=== PATIENT | female | born 1945 | race Caucasian/White ===

== ENCOUNTER 2018-11-03 16:56 | Observation (INO) | payer MEDICARE ==
[~2018-11-03] VITALS: Ht 170.2 cm; Wt 76.2 kg
[~2018-11-03 16:56] MED LIST: ALIGN4 MG PO; AMLODIPINE BESYL5 MG PO; ASPIRIN EC81 MG PO; CRESTOR5 MG PO; FENOFIBRATE200 MG PO; GLIPIZIDE10 MG PO; HUMULIN R100 UNIT/2 SQ; HYDROCHLOROTHIA25 MG PO; INSULIN; LOSARTAN POTAS100 MG PO; METFORMIN HCL1000 MG PO; OMEPRAZOLE40 MG PO; VERAPAMIL HCL120 MG PO
[2018-11-03] MEDS ORDERED: NITROGLYCERIN 0.4 MG SUBL SL ONE (17:45)
[2018-11-03] MEDS ORDERED: ACETAMINOPHEN 325 MG TAB PO ONE (17:45)
[2018-11-03] MEDS ORDERED: POTASSIUM CHLORIDE 20 MEQ TAB CR PO STA (18:21)
--- NOTE | 2018-11-03 19:02 | Diagnostic Imaging Report ---
Frontal and lateral views of the chest. HISTORY: Shortness of breath, pain COMPARISON: None available. DISCUSSION: Lungs: The lungs are well inflated. No evidence of a consolidative pneumonia or pulmonary alveolar edema. Pleura: No pleural effusion or pneumothorax. Heart and mediastinum: The cardiomediastinal silhouette appears unremarkable. Bones and soft tissues: Diffusely decreased mineralization of the osseous structures limits bone detail. Mild accentuation of the thoracic kyphosis. Mild multilevel degenerative disc changes. IMPRESSION: 1. No acute radiographic abnormality. 2. Diffuse osseous demineralization. Signed by: Dr. Hadyen Ellis D.O., M.M.M. on 11/03/2018 6:59 PM
[2018-11-03] MEDS ORDERED: ASPIRIN 81 MG CHEW TAB PO ONE (19:30)
--- OUTSIDE RECORDS SUMMARY | 2018-11-03 20:07 | XMS REPORT ---
[facility] Address Unknown Phone Unavailable Care Team Providers Care Java Tech Name Role Phone Marc COWART Unavailable Unavailable Problems This patient has no known problems. Allergies, Adverse Reactions, Alerts This patient has no known allergies or adverse reactions. Medications This patient has no known medications. Results Test Description Test Time Test Comments Text Results Atomic Results Result Comments [facility]R [facility] 2018-11-03 18:58:00 [facility] [address] [address] Patient Name: URSULA OORZCO MR #: [id number] : 1945 Age/Sex: 73/F Req #: [id number] Adm Physician: Ordered by: ROBER COWART MD Report #: [id number] Location: [facility] Room/Bed: Procedure: [id number] HOPD/CXR 2 VIEW - [facility] Exam Date: 11/03/18 Exam Time: 1852 REPORT STATUS: Signed Frontal and lateral views of the chest. HISTORY: Shortness of breath, pain COMPARISON: None available. DISCUSSION: Lungs: The lungs are well inflated. No evidence of a consolidative pneumonia or pulmonary alveolar edema. Pleura: No pleural effusion or pneumothorax. Heart and mediastinum: The cardiomediastinal silhouette appears unremarkable. Bones and soft tissues: Diffusely decreased mineralization of the osseous structures limits bone detail. Mild accentuation of the thoracic kyphosis. Mild multilevel degenerative disc changes. IMPRESSION: 1. No acute radiographic abnormality. 2. Diffuse osseous demineralization. Signed by: Dr. Seth Ellis D.O., M.M.M. on 11/03/2018 6:59 PM Dictated By: SETH ELLIS DO 56 Transcribed By: JEET on 11/03/181858 COPY TO: ROBER COWART MD
--- NOTE | 2018-11-03 20:50 | NUR ---
SPOKE WITH DR Bee LEPE WHO IS COVERING FOR [facility] PT'S CARDIOLOGY CONSULT - MD AWARE OF CONSULT AND STATES WILL SEE PT IN AM
--- NOTE | 2018-11-03 20:51 | NUR ---
called [facility] for transport
[2018-11-03] MEDS: INSULIN REGULAR, HUMAN 100 UNIT/1 ML 3ML VIAL SQ SCH (21:00)
[2018-11-03] MEDS ORDERED: DEXTROSE 50% SYRINGE 50 ML IV PRN (21:00)
[2018-11-03 22:01] VITALS: BP 207/95
--- NOTE | 2018-11-03 22:01 | NUR ---
RECEIVED PT BY EMS STRETCHER TO ROOM 102, PT IS AAOX3, RR EVEN AND NON-LABORED, ON RA. NO S/SX OF DISTRESS NOTED. PT AMBULATORY TO HOSPITAL BED. ORIENTED PT TO HOSPITAL ROOM, CALL LIGHT, PHONE, BED CONTROLS AND LIGHTS. LEFT PT LAYING SEMI FOWLERS IN BED, BED IN LOW LOCKED POSITION, SIDE RAILS UPX2, CALL LIGHT AND PHONE WITHIN REACH.
[2018-11-03 22:40] VITALS: BP 172/92
[2018-11-03 22:49] VITALS: BP 207/95
[2018-11-03] MEDS ORDERED: NOVOLIN 70/30 SC (23:25)
[2018-11-03] MEDS ORDERED: TRESIBA (23:25)
--- NOTE | 2018-11-03 23:26 | NUR ---
SPOKE WITH MD Nelson LEPE CONCERNING PT ELEVATED BP. NEW ORDERS RECEIVED.
[2018-11-03] MEDS ORDERED: HYDRALAZINE HCL 20 MG/ML VIAL IV PRN (23:30)
[2018-11-03] MEDS ORDERED: LABETALOL HCL 20 MG/4 ML SYRINGE IV PRN (23:30)
[2018-11-04] VITALS (9 sets, daily range): BP systolic 137–178; BP diastolic 67–88
--- NOTE | 2018-11-04 00:15 | NUR ---
IV TO (L) AC NOTED TO BE OCCLUDED WHEN FLUSH ATTEMPTED. IV DISCONTINUED. CATHETER TIP INTACT. PRESSURE AND DRESSING APPLIED NEW IV STARTED TO (L) FA 20G. FLUSHES WITHOUT DIFFICULTY, BLOOD RETURN NOTED.
[2018-11-04] MEDS ORDERED: CRANBERRY200 MG PO (00:49)
[2018-11-04] MEDS ORDERED: KRILL OIL 1,001 EACH PO (00:49)
[2018-11-04] MEDS ORDERED: GARLIC1 EAC1 PO (00:49)
[2018-11-04 02:12] LABS: CREATINE KINASE MB 2.5 ng/mL (0-5.0)
[2018-11-04 05:10] LABS: CREATINE KINASE MB 2.5 ng/mL (0-5.0)
[2018-11-04 05:35] LABS: CHOL/HDL RATIO 6.7 (3.0-3.6); CHOLESTEROL 221 MD/DL (0-199); HDL CHOLESTEROL 33 MG/DL (40-60); TRIGLYCERIDES 671 MG/DL (0-149)
--- NOTE | 2018-11-04 07:13 | NUR ---
Rcvd patient in report this am. Patient is asleep in bed at this time. No s/s of distress noted.
[2018-11-04 08:12] LABS: CREATINE KINASE MB 2.7 ng/mL (0-5.0)
[2018-11-04] MEDS: ASPIRIN 81 MG ENTERIC COATED PO SCH (08:41)
[2018-11-04] MEDS: INSULIN REGULAR, HUMAN 100 UNIT/1 ML 3ML VIAL SQ SCH ×4 (08:41→21:27)
--- NOTE | 2018-11-04 12:26 | NUR ---
Patient is AAOx3. patient lung lawson clear to auscultation. Bowel sounds present x4. No edema noted. Patient ambulates on her own. No shortness of breath noted. Patient does c/o sternal chest pain mainly after eating. No radiating chest pain noted.
--- NOTE | 2018-11-04 14:36 | NUR ---
EDUCATED ABOUT RIOS, SIGNED, FILED IN CHART, WITH COPY LEFT WITH FAMILY AT BEDSIDE.
--- NOTE | 2018-11-05 01:25 | NUR ---
MARIA ESTHER [place] BUS DRIVER OF DR DOSS HERE ROUNDING ON PT AT THIS TIME.NOTIFIED MARIA ESTHER THAT DR MUELLER(CARDIOLOGY) CLEARED THE PT TO DISCHARGE FROM CARDIOLOGY STANDPOINT.
--- NOTE | 2018-11-05 01:28 | Consultation ---
DATE OF CONSULTATION: Cardiology consultation. REASON FOR CONSULTATION: Chest pain. HISTORY OF PRESENT ILLNESS: This is a 73-year-old woman with hypertension, diabetes mellitus, and a hiatal hernia status post repair many years ago, presented to the emergency department with chest pain. The patient states that she had central chest pain, moderate intensity, worse with each food intake and mild shortness of breath. The patient has negative cardiac workup with stress test and echocardiogram approximately 1-1/2 years ago in our clinic. REVIEW OF SYSTEMS: A 12-point review of system was conducted, is negative otherwise as stated above in the HPI. PAST MEDICAL HISTORY: As stated above in the HPI. PAST SURGICAL HISTORY: Cardiac catheterization showed nonobstructive coronary artery disease. PAST FAMILY HISTORY: No premature CAD. SOCIAL HISTORY: No illicit drug use or previous tobacco use. ALLERGIES: PENICILLIN AND CODEINE. MEDICATIONS: See medication reconciliation form. PHYSICAL EXAMINATION: VITAL SIGNS: Temperature is 97.7, heart rate 73, respirations 18, blood pressure 137/74, and oxygen saturation 98% on room air. GENERAL: She is well-appearing elderly woman lying comfortably in bed. HEENT: Head normocephalic, atraumatic. Eyes, the extraocular muscles are intact. Throat is clear. NECK: No JVD. No bruits. CARDIOVASCULAR: Regular rate and rhythm. No murmurs. LUNGS: Clear to auscultation. ABDOMEN: Soft, nontender. EXTREMITIES: No edema. VASCULAR: 2+ pulses. SKIN: Warm, dry, intact. LABORATORY DATA: Reviewed. Troponin is negative x3. A 12-lead electrocardiogram showed normal sinus rhythm, left anterior fascicular block, left ventricular hypertrophy. IMPRESSION: 1. Precordial pain. 2. Hiatal hernia. 3. Hyperlipidemia. RECOMMENDATIONS: The patient has ruled out for acute myocardial infarction. She has had normal cardiac workup within the last 1 to 2 years. Her symptoms are consistent with a gastroenterology source. We will defer all other evaluation to primary team. The patient does not require any further cardiac testing at this point in time, and she can follow up with Cardiology as an outpatient. DO DEMOND Cary/MODL /[id number]
[2018-11-05] MEDS ORDERED: HYDRALAZINE HCL 20 MG/ML VIAL IV PRN (01:30)
[2018-11-05 04:00] VITALS: BP 142/80
[2018-11-05 06:02] LABS: BASOPHILS # (AUTO) 0.1 (0.0-0.1); BASOPHILS % 0.7 % (0.0-1.0); EOSINOPHILS # (AUTO) 0.2 (0.0-0.4); EOSINOPHILS % 2.6 % (0.0-6.0); HEMATOCRIT 40.7 % (34.2-44.1); HEMOGLOBIN 13.2 g/dL (12.0-16.0); LYMPHOCYTES % 47.6 % (18.0-39.1); MEAN CORPUSCULAR HEMOGLOBIN 27.8 pg (28-32); MEAN CORPUSCULAR HGB CONC 32.4 g/dL (31-35); MEAN CORPUSCULAR VOLUME 85.9 fL (81-99); MONOCYTES # (AUTO) 0.6 (0.2-0.8); MONOCYTES % 7.5 % (4.4-11.3); NEUTROPHILS # (AUTO) 3.5 (2.1-6.9); NEUTROPHILS % 41.4 % (38.7-80.0); PLATELET COUNT 269 x10e3/uL (140-360); RED BLOOD COUNT 4.74 x10e6/uL (3.6-5.1); RED CELL DISTRIBUTION WIDTH 16.8 % (11.7-14.4)
[2018-11-05 06:31] LABS: ANION GAP 15.2 mmol/L (8-16); CALCIUM 9.9 mg/dL (8.4-10.2); CREATININE, SERUM 1.02 mg/dL (0.57-1.11); MAGNESIUM 1.6 MG/DL (1.3-2.1); PHOSPHORUS 3.2 MG/DL (2.3-4.7); POTASSIUM 4.2 mmol/L (3.5-5.1)
--- NOTE | 2018-11-05 07:38 | NUR ---
Rcvd patient in report this am. Patient is asleep in bed at this time. No s/s of distress noted.
[2018-11-05] MEDS: ASPIRIN 81 MG ENTERIC COATED PO SCH (08:12)
[2018-11-05] MEDS: METOCLOPRAMIDE HCL 10 MG TAB PO SCH ×2 (08:12→11:43)
[2018-11-05 08:30] VITALS: BP 148/77
[2018-11-05] MEDS: INSULIN REGULAR, HUMAN 100 UNIT/1 ML 3ML VIAL SQ SCH ×2 (08:38→11:48)
[2018-11-05] MEDS ORDERED: NON-FORMULARY MEDICATION (Glipizide 10 MG) PO SCH (09:00)
[2018-11-05] MEDS ORDERED: DHA PO SCH ×2 (09:00)
[2018-11-05] MEDS ORDERED: EPA PO SCH ×2 (09:00)
[2018-11-05] MEDS ORDERED: GARLIC PO SCH ×2 (09:00)
[2018-11-05] MEDS ORDERED: KRILL PO SCH ×2 (09:00)
[2018-11-05] MEDS ORDERED: [UNRECOGNIZED DRUG - OTHER] PO SCH ×2 (09:00)
[2018-11-05] MEDS ORDERED: LIP PO SCH ×2 (09:00)
[2018-11-05] MEDS ORDERED: CRANBERRY EXTRACT 200 MG PO SCH ×2 (09:00)
[2018-11-05] MEDS ORDERED: ASTX PO SCH ×2 (09:00)
[2018-11-05] MEDS ORDERED: PANTOPRAZOLE SOD 40 MG TABEC PO SCH (09:00)
[2018-11-05] MEDS ORDERED: GLIPIZIDE 5 MG TAB PO SCH (09:00)
[2018-11-05 10:03] VITALS: BP 148/77
[2018-11-05 12:24] VITALS: BP 147/79
--- NOTE | 2018-11-05 13:45 | Progress Note ---
DATE: 11/05/2018 Cardiology Progress Note SUBJECTIVE: No major events overnight. OBJECTIVE: VITAL SIGNS: Temperature afebrile, pulse 74, respiratory rate 18, blood pressure 148/77, and saturating 97% on room air. GENERAL: Elderly white female, well developed, well nourished, in no acute distress. CARDIOVASCULAR: Regular rate and rhythm. No murmurs, rubs, or gallops. LUNGS: Clear to auscultation bilaterally. ABDOMEN: Soft, mildly tender, nondistended. NEURO and PSYCH: Alert and oriented to person, place, and time. Normal affect. INPATIENT MEDICATIONS: Reviewed. LABORATORY DATA: Reviewed. IMAGING DATA: Reviewed. ASSESSMENT: 1. Precordial pain. 2. Hiatal hernia. 3. Hyperlipidemia. RECOMMENDATIONS: The patient has been ruled out for acute IN with serial troponins. Had a normal cardiac workup within the last year. Symptoms consistent with GI origin. Given her prior hiatal hernia, defer evaluation to GI. The patient is okay to be discharged from a cardiology standpoint, will follow up with her outpatient supervisor curing room, Dr. Arambula, in two weeks post discharge. Thank you for this consult. We will continue to follow. MD RYLEY Palacios/ONEIDA /[id number]
[2018-11-05] MEDS ORDERED: SIMVASTATIN20 MG PO (13:57)
[2018-11-05] MEDS ORDERED: METOCLOPRAMIDE10 MG PO (13:57)
[2018-11-05] MEDS ORDERED: PANTOPRAZOLE SO40 MG PO (13:57)
--- NOTE | 2018-11-05 14:27 | NUR ---
Patient discharged from facility to home. Patient assisted out via staff. Reviewed discharge paperwork with patient and family member. RX's given, and follow up appts reviewed. Patient refused to take the cholesterol medication because she has tried statin medication and is unable to take. She informed the chef yesterday
[2018-11-05] MEDS ORDERED: TRESIBA SC SCH (21:00)
[2018-11-05] MEDS ORDERED: ASPIRIN 81 MG ENTERIC COATED PO SCH (21:00)
[2018-11-05] MEDS ORDERED: SIMVASTATIN 20 MG TAB PO SCH (21:00)
[2018-11-05] MEDS ORDERED: AMLODIPINE BESYLATE 5 MG TAB PO SCH (21:00)
--- NOTE | 2018-11-06 14:19 | Discharge Summary ---
PERTINENT HISTORY AND PHYSICAL FINDINGS: The patient complained of chest tightness in the central wall chest area with associated sudden onset of shortness of breath and mild lightheadedness [place] the [place] November 03, 2018. At maximum, the chest pain was described as moderate and was later described as mild in the emergency department. She complains of pain with eating and in the past 2 days, she states the chest pain radiated to her back. Cardiology has been consulted and is seeing the patient. PAST MEDICAL HISTORY: Significant for type 2 diabetes mellitus, hypertension, and acute gastritis. The patient had a cardiac catheterization in 2012 with 20% blockage. ALLERGIES: SHE DENIES BEING ALLERGIC TO CODEINE AND ADMITS TO BEING ALLERGIC TO PENICILLIN. ADMITTING DIAGNOSES: Include: 1. Acute onset chest pain. 2. Acute dyspnea. 3. Hypertension. 4. Type 2 diabetes mellitus. 5. Hypokalemia. 6. Acute gastritis with history of gastroesophageal reflux disease, probable diabetic gastroparesis. 7. Hyperlipidemia. DISCHARGE DIAGNOSES: Include: 1. Acute onset chest pain. 2. Acute dyspnea. 3. Hypertension. 4. Type 2 diabetes mellitus. 5. Hypokalemia. 6. Acute gastritis with history of gastroesophageal reflux disease, probable diabetic gastroparesis. 7. Hyperlipidemia. CONSULTING PHYSICIAN: Includes Dr. Balderas with Cardiology. Per his documentation dated today, the patient has ruled out for acute myocardial infarction. She has a normal cardiac workup within the last 1-2 years. Symptoms are consistent with a gastroenterology source. The patient does not require any further cardiac testing at this point. PERTINENT DIAGNOSTICS AND LABS: On admission, potassium was 2.8, BUN 13, and creatinine 1.0. Hemoglobin 13.6 and hematocrit 40.8. EKG per the emergency department physician showed abnormal ST waves, abnormal QT, nonspecific ST segment, T-wave abnormalities, incomplete right bundle-branch block. B-type natriuretic peptide 15.6. Troponin I less than 0.05. D-dimer 334. Triglycerides 671, cholesterol 221, and HDL 33. Chest x-ray was negative. Fingerstick blood glucose in the 200s. Today, fingerstick blood glucose level 257 and 283, GFR 53, creatinine of 1.02, and potassium level 4.2. Vital signs are stable. Review of systems, the patient states that her chest discomfort is gone and that the Reglan that she has been taking has helped the discomfort considerably. We will discharge her home on Reglan and Protonix for diabetic gastroparesis. Physical exam is unchanged. The patient will be discharging home without home health. No DME required. She is to continue on ADA, low-sodium diet, activity level as tolerated. Follow up with Dr. Ian Perez, her PCP in 1-2 weeks. She is also to follow up with her Gastroenterology physician, Dr. Jack Sandoval. Her last colonoscopy was about a year ago. Prescriptions will be provided for simvastatin 20 mg p.o. q.h.s., Protonix 40 mg p.o. b.i.d., and Reglan 5 mg p.o. before meals and at bedtime. Dictated by Mynor Montenegro NP Nelson Lee MD [facility]/OENIDA /[id number]
== END 2018-11-05 14:23 | disposition home or self-care (01) ==
LOC: FSED 16:56 → ERHOLD 19:39 → MED/SURG 22:01
PROVIDERS: ADMIT Internal Medicine; ATTEND Internal Medicine
DX: R07.2 Precordial pain (principal); I10 Essential (primary) hypertension; E11.9 Type 2 diabetes mellitus without complications; Z87.891 Personal history of nicotine dependence; Z88.5 Allergy status to narcotic agent; Z88.0 Allergy status to penicillin; Z91.018 Allergy to other foods; Z91.048 Other nonmedicinal substance allergy status; K21.9 Gastro-esophageal reflux disease without esophagitis; E87.6 Hypokalemia; K29.00 Acute gastritis without bleeding; E78.5 Hyperlipidemia, unspecified; K44.9 Diaphragmatic hernia without obstruction or gangrene
CPT/HCPCS: 36415 ×2; 71046; 80048; 80053; 80061; 82550; 82553; 82948 ×3; 83036; 83735; 84100; 84484 ×2; 85025 ×2; 93005; 99284; G0378 ×3; J0360; J1817; J8597; S0164

== ENCOUNTER 2021-09-20 18:21 | Inpatient (IN) | payer MEDICARE, OTHER ==
[~2021-09-20] VITALS: Ht 170.2 cm; Wt 76.2 kg
[~2021-09-20 18:21] MED LIST changes: +CRANBERRY200 MG PO; +GARLIC1 EAC1 PO; +KRILL OIL 1,001 EACH PO; +METOCLOPRAMIDE10 MG PO; +NOVOLIN 70/30 SC; +PANTOPRAZOLE SO40 MG PO; +SIMVASTATIN20 MG PO; +TRESIBA
[2021-09-20] MEDS ORDERED: ONDANSETRON HCL INJ 2MG/ML 2ML 2 MG/ML VIAL IV STA (18:43)
[2021-09-20] MEDS ORDERED: KETOROLAC TROMETHAMINE 30 MG/ML VIAL IV STA (18:43)
[2021-09-20] MEDS ORDERED: SODIUM CHLORIDE 0.9% 1000ML 1,000 ML IV STA ×2 (18:43→20:14)
[2021-09-20] MEDS ORDERED: ACETAMINOPHEN 325 MG TAB PO STA (19:15)
[2021-09-20 19:18] LABS: BASOPHILS % 0.2 % (0.0-1.0); EOSINOPHILS % 0.1 % (0.0-6.0); HEMATOCRIT 41.6 % (34.2-44.1); HEMOGLOBIN 13.3 g/dL (12.0-16.0); LYMPHOCYTES % 12.6 % (18.0-39.1); MEAN CORPUSCULAR HEMOGLOBIN 28.7 pg (28-32); MEAN CORPUSCULAR VOLUME 89.7 fL (81-99); MONOCYTES # (AUTO) 0.5 (0.2-0.8); MONOCYTES % 6.1 % (4.4-11.3); NEUTROPHILS # (AUTO) 6.6 (2.1-6.9); NEUTROPHILS % 80.3 % (38.7-80.0); PLATELET COUNT 305 x10e3/uL (140-360); RED BLOOD COUNT 4.64 x10e6/uL (3.6-5.1); RED CELL DISTRIBUTION WIDTH 13.3 % (11.7-14.4)
[2021-09-20 19:36] LABS: ALBUMIN 3.5 g/dL (3.5-5.0); ALBUMIN/GLOBULIN RATIO 0.7 (0.8-2.0); ANION GAP 19.8 mmol/L (8-16); CALCIUM 11.3 mg/dL (8.4-10.2); CREATININE, SERUM 1.94 mg/dL (0.57-1.11); POTASSIUM 3.8 mmol/L (3.5-5.1)
[2021-09-20] MEDS ORDERED: METRONIDAZOLE 500 MG TAB PO ONE (19:45)
[2021-09-20] MEDS ORDERED: CEFTRIAXONE 1 GM in SODIUM CHLORIDE 0.9% 50ML 50 ML IV ONE (19:45)
[2021-09-20] MEDS ORDERED: CEFTRIAXONE 1 GM VIAL ONE (19:55)
[2021-09-20 19:58] LABS: INR 1.17; PROTHROMBIN TIME 15.7 seconds (11.9-14.5)
[2021-09-20 19:59] LABS: PARTIAL THROMBOPLASTIN TIME 44.8 seconds (23.8-35.5)
[2021-09-20] MEDS ORDERED: INSULIN REGULAR, HUMAN 100 UNIT/1 ML IV ONE (20:00)
[2021-09-20 20:13] LABS: B-TYPE NATRIURETIC PEPTIDE2 63.7 pg/mL (0-100)
[2021-09-20 20:26] LABS: ABG HCO3 22 mmol/L (22-26); ABG PCO2 29 mmHg (35-45); ABG PH 7.49 (7.35-7.45); ABG PO2 96 mmHg (80-105); ABG TCO2 23
[2021-09-20] MEDS ORDERED: SODIUM CHLORIDE 0.9% 1000ML 1,000 ML ONE (20:27)
[2021-09-20 21:00] LABS: CLARITY,URINE CLOUDY (CLEAR); COLOR,URINE YELLOW (YELLOW)
[2021-09-20 21:01] LABS: KETONES,URINE 2+ (NEGATIVE); LEUKOCYTE ESTERASE ,URINE NEGATIVE (NEGATIVE); NITRITE,URINE NEGATIVE (NEGATIVE); PROTEIN,URINE DIPSTICK >=300 (NEGATIVE); URINE UROBILINOGEN 4 mg/dL (0.2 - 1)
[2021-09-20 21:07] LABS: WBC,URINE (MAN) >50 /HPF (0-5)
[2021-09-20 21:08] LABS: BACTERIA,URINE MANY /HPF; EPITHELIAL CELLS,URINE FEW /LPF; RBC,URINE 21-50 /HPF (0-5)
[2021-09-20] MEDS ORDERED: SODIUM CHLORIDE 0.9% 1000ML 1,000 ML IV ONE (22:15)
[2021-09-20] MEDS ORDERED: Morphine 2mg Syringe 2 MG/ML SYR IV PRN (22:30)
[2021-09-20] MEDS ORDERED: DEXTROSE 50% SYRINGE 50 ML IV PRN (23:15)
[2021-09-20] MEDS ORDERED: ACETAMINOPHEN 325 MG TAB PO PRN (23:15)
[2021-09-20 23:35] VITALS: BP 116/45
[2021-09-20] MEDS: SODIUM CHLORIDE 0.9% 1000ML 1,000 ML IV SCH (23:52)
[2021-09-21] VITALS (9 sets, daily range): BP systolic 113–163; BP diastolic 45–76
[2021-09-21] MEDS: ONDANSETRON HCL INJ 2MG/ML 2ML 2 MG/ML VIAL IV PRN ×2 (06:14→11:10)
[2021-09-21 06:29] LABS: BASOPHILS % 0.3 % (0.0-1.0); EOSINOPHILS # (AUTO) 0.1 (0.0-0.4); EOSINOPHILS % 2.1 % (0.0-6.0); LYMPHOCYTES # (AUTO) 1.7 (1.0-3.2); LYMPHOCYTES % 24.8 % (18.0-39.1); MEAN CORPUSCULAR HEMOGLOBIN 29.3 pg (28-32); MEAN CORPUSCULAR HGB CONC 30.6 g/dL (31-35); MEAN CORPUSCULAR VOLUME 95.7 fL (81-99); MONOCYTES # (AUTO) 0.6 (0.2-0.8); MONOCYTES % 8.4 % (4.4-11.3); NEUTROPHILS # (AUTO) 4.4 (2.1-6.9); PLATELET COUNT 240 x10e3/uL (140-360); RED BLOOD COUNT 3.76 x10e6/uL (3.6-5.1); RED CELL DISTRIBUTION WIDTH 13.5 % (11.7-14.4)
[2021-09-21] MEDS: SODIUM CHLORIDE 0.9% 1000ML 1,000 ML IV SCH ×3 (06:29→22:19)
[2021-09-21 06:59] LABS: ANION GAP 14.3 mmol/L (8-16); CALCIUM 9.5 mg/dL (8.4-10.2); CREATININE, SERUM 1.84 mg/dL (0.57-1.11); POTASSIUM 3.3 mmol/L (3.5-5.1)
[2021-09-21] MEDS: INSULIN REGULAR, HUMAN 100 UNIT/1 ML SQ SCH ×4 (07:30→21:00)
[2021-09-21] MEDS: INSULIN GLARGINE 100 UNITS/ML VIAL SQ SCH (09:00)
[2021-09-21 09:02] LABS: CHOL/HDL RATIO 10.6 (3.0-3.6); CHOLESTEROL 181 MD/DL (0-199); HDL CHOLESTEROL 17 MG/DL (40-60); TRIGLYCERIDES 428 MG/DL (0-149)
[2021-09-21] MEDS ORDERED: PROMETHAZINE 12.5MG/ NACL 0.9% 12.5 MG/50 ML BAG IV PRN (14:30)
[2021-09-21] MEDS ORDERED: HYDROCORTISONE ACETATE 25 MG/SUPP.RECT SUPP RC PRN (14:30)
[2021-09-21] MEDS: AMLODIPINE BESYLATE 5 MG TAB PO SCH (22:12)
[2021-09-22] VITALS (8 sets, daily range): BP systolic 133–151; BP diastolic 52–72
[2021-09-22 06:03] LABS: BASOPHILS % 0.5 % (0.0-1.0); EOSINOPHILS # (AUTO) 0.3 (0.0-0.4); EOSINOPHILS % 4.2 % (0.0-6.0); HEMATOCRIT 34.9 % (34.2-44.1); HEMOGLOBIN 10.7 g/dL (12.0-16.0); LYMPHOCYTES # (AUTO) 2.1 (1.0-3.2); LYMPHOCYTES % 32.6 % (18.0-39.1); MEAN CORPUSCULAR HEMOGLOBIN 29.1 pg (28-32); MEAN CORPUSCULAR HGB CONC 30.7 g/dL (31-35); MEAN CORPUSCULAR VOLUME 94.8 fL (81-99); MONOCYTES # (AUTO) 0.6 (0.2-0.8); NEUTROPHILS # (AUTO) 3.5 (2.1-6.9); NEUTROPHILS % 53.1 % (38.7-80.0); RED BLOOD COUNT 3.68 x10e6/uL (3.6-5.1); RED CELL DISTRIBUTION WIDTH 13.8 % (11.7-14.4)
[2021-09-22] MEDS: SODIUM CHLORIDE 0.9% 1000ML 1,000 ML IV SCH ×3 (06:30→22:15)
[2021-09-22 06:49] LABS: ANION GAP 13.5 mmol/L (8-16); CALCIUM 8.7 mg/dL (8.4-10.2); CREATININE, SERUM 1.13 mg/dL (0.57-1.11); POTASSIUM 3.5 mmol/L (3.5-5.1)
[2021-09-22] MEDS: INSULIN REGULAR, HUMAN 100 UNIT/1 ML SQ SCH ×4 (07:30→21:28)
[2021-09-22 07:53] LABS: PLATELET COUNT 209 x10e3/uL (140-360)
[2021-09-22] MEDS ORDERED: SODIUM CHLORIDE 0.9% 100 ML ONE (08:11)
[2021-09-22] MEDS: METRONIDAZOLE 500 MG TAB PO SCH ×2 (08:24→21:00)
[2021-09-22] MEDS: INSULIN GLARGINE 100 UNITS/ML VIAL SQ SCH (09:00)
[2021-09-22] MEDS ORDERED: PANTOPRAZOLE SOD 40 MG TABEC PO ONE (12:00)
[2021-09-22] MEDS: AMLODIPINE BESYLATE 5 MG TAB PO SCH (21:27)
[2021-09-23 00:03] VITALS: BP 111/95
[2021-09-23] MEDS: ONDANSETRON HCL INJ 2MG/ML 2ML 2 MG/ML VIAL IV PRN ×2 (01:00→06:32)
[2021-09-23 04:10] VITALS: BP 131/61
[2021-09-23] MEDS: SODIUM CHLORIDE 0.9% 1000ML 1,000 ML IV SCH (06:30)
[2021-09-23 07:17] LABS: BASOPHILS % 0.3 % (0.0-1.0); EOSINOPHILS # (AUTO) 0.2 (0.0-0.4); EOSINOPHILS % 3.1 % (0.0-6.0); HEMATOCRIT 31.1 % (34.2-44.1); HEMOGLOBIN 9.8 g/dL (12.0-16.0); LYMPHOCYTES # (AUTO) 2.5 (1.0-3.2); LYMPHOCYTES % 35.7 % (18.0-39.1); MEAN CORPUSCULAR HEMOGLOBIN 28.4 pg (28-32); MEAN CORPUSCULAR HGB CONC 31.5 g/dL (31-35); MEAN CORPUSCULAR VOLUME 90.1 fL (81-99); MONOCYTES # (AUTO) 0.6 (0.2-0.8); MONOCYTES % 8.6 % (4.4-11.3); NEUTROPHILS # (AUTO) 3.6 (2.1-6.9); NEUTROPHILS % 51.9 % (38.7-80.0); PLATELET COUNT 204 x10e3/uL (140-360); RED BLOOD COUNT 3.45 x10e6/uL (3.6-5.1); RED CELL DISTRIBUTION WIDTH 13.4 % (11.7-14.4)
[2021-09-23] MEDS ORDERED: PANTOPRAZOLE SOD 40 MG TABEC PO SCH (07:30)
[2021-09-23 07:34] LABS: ANION GAP 13.5 mmol/L (8-16); CALCIUM 8.8 mg/dL (8.4-10.2); CREATININE, SERUM 0.92 mg/dL (0.57-1.11); POTASSIUM 3.5 mmol/L (3.5-5.1)
[2021-09-23 07:50] VITALS: BP_SYST 135; BP_SYST 155; BP_DIAS 69
[2021-09-23] MEDS: METRONIDAZOLE 500 MG TAB PO SCH (08:06)
[2021-09-23] MEDS: INSULIN GLARGINE 100 UNITS/ML VIAL SQ SCH (08:09)
[2021-09-23] MEDS: INSULIN REGULAR, HUMAN 100 UNIT/1 ML SQ SCH ×2 (08:10→11:30)
[2021-09-23 11:32] VITALS: BP 137/70
[2021-09-23] MEDS ORDERED: ONDANSETRON ODT4 MG PO (13:36)
[2021-09-23] MEDS ORDERED: METRONIDAZOLE500 MG PO (13:36)
[2021-09-23] MEDS ORDERED: PANTOPRAZOLE SO40 MG PO (13:36)
== END 2021-09-23 14:28 | disposition home or self-care (01) | DRG 690 ==
LOC: ER 18:31 → ERHOLD 23:13 → MED/SURG3 23:33
PROVIDERS: ADMIT Internal Medicine; ATTEND Internal Medicine
DX: N39.0 Urinary tract infection, site not specified (principal); N17.9 Acute kidney failure, unspecified; E87.2 Acidosis; A09 Infectious gastroenteritis and colitis, unspecified; E11.9 Type 2 diabetes mellitus without complications; I10 Essential (primary) hypertension; E83.52 Hypercalcemia; Z87.440 Personal history of urinary (tract) infections; Z88.0 Allergy status to penicillin; Z91.018 Allergy to other foods; Z91.048 Other nonmedicinal substance allergy status; Z20.822 Contact with and (suspected) exposure to COVID-19; Z79.4 Long term (current) use of insulin
CPT/HCPCS: 36415; 36600; 71045; 74176; 80048; 80053; 80061; 81001; 82550; 82553; 82805; 82948; 83036; 83605; 83690; 83880; 84484; 85025; 85610; 85730; 87040; 87086; 93005; 96361; 99251; 99284; J0696; J1815; J1885; J2405; J2550; J7030; J7050; U0002

== ENCOUNTER 2022-02-10 07:07 | Observation (INO) | payer MEDICARE ==
[2022-02-05 15:06] LABS: BASOPHILS # (AUTO) 0.1 (0.0-0.1); BASOPHILS % 0.9 % (0.0-1.0); EOSINOPHILS # (AUTO) 0.3 (0.0-0.4); EOSINOPHILS % 3.8 % (0.0-6.0); HEMATOCRIT 42.5 % (34.2-44.1); HEMOGLOBIN 14.7 g/dL (12.0-16.0); LYMPHOCYTES # (AUTO) 3.4 (1.0-3.2); LYMPHOCYTES % 45.2 % (18.0-39.1); MEAN CORPUSCULAR HEMOGLOBIN 31.1 pg (28-32); MEAN CORPUSCULAR HGB CONC 34.6 g/dL (31-35); MEAN CORPUSCULAR VOLUME 89.9 fL (81-99); MONOCYTES # (AUTO) 0.5 (0.2-0.8); MONOCYTES % 6.6 % (4.4-11.3); NEUTROPHILS # (AUTO) 3.2 (2.1-6.9); NEUTROPHILS % 43.2 % (38.7-80.0); PLATELET COUNT 302 x10e3/uL (140-360); RED BLOOD COUNT 4.73 x10e6/uL (3.6-5.1); RED CELL DISTRIBUTION WIDTH 14.1 % (11.7-14.4)
[2022-02-05 15:26] LABS: ALBUMIN 3.8 g/dL (3.5-5.0); ALBUMIN/GLOBULIN RATIO 0.7 (0.8-2.0); ANION GAP 20.4 mmol/L (8-16); CALCIUM 9.7 mg/dL (8.4-10.2); CREATININE, SERUM 1.82 mg/dL (0.57-1.11)
[2022-02-05 15:28] LABS: POTASSIUM 5.4 mmol/L (3.5-5.1)
[~2022-02-10] VITALS: Ht 170.2 cm; Wt 67.6 kg
[2022-02-10] VITALS (31 sets, daily range): BP systolic 107–186; BP diastolic 49–108
[~2022-02-10 07:07] MED LIST changes: +METRONIDAZOLE500 MG PO; +ONDANSETRON ODT4 MG PO
[2022-02-10] MEDS ORDERED: TRICOR145 MG PO (11:12)
[2022-02-10] MEDS ORDERED: OMEPRAZOLE40 MG PO (11:12)
[2022-02-10] MEDS ORDERED: PROPRANOLOL HCL40 MG PO (11:12)
[2022-02-10] MEDS ORDERED: ASPIRIN81 MG PO (11:12)
[2022-02-10] MEDS ORDERED: SODIUM CHLORIDE 0.9% 1000ML 1,000 ML ONE ×3 (12:02→18:44)
[2022-02-10] MEDS ORDERED: IOPAMIDOL 300MG/ML 50ML INFUS..BTL IV ONE (13:51)
[2022-02-10] MEDS ORDERED: IOPAMIDOL 300MG/ML 100 ML INFUS..BTL IV ONE (13:51)
[2022-02-10] MEDS ORDERED: HEPARIN SOD/SOD CHLORIDE 2,000 ML ONE (13:51)
[2022-02-10] MEDS ORDERED: LIDOCAINE HCL 1% LOCAL INJ 20 ML VIAL ONE (13:52)
[2022-02-10] MEDS ORDERED: MIDAZOLAM HCL 2 MG/2 ML VIAL ONE ×3 (13:53→15:19)
[2022-02-10] MEDS ORDERED: HEPARIN SOD (PORCINE) 1000 UNIT/ML 30ML ONE (13:53)
[2022-02-10] MEDS ORDERED: NITROGLYCERIN/D5W 200 MCG/ML 250 ML ONE (13:54)
[2022-02-10] MEDS ORDERED: FENTANYL CITRATE/PF 100MCG/2 ML INJ ONE ×2 (13:54→15:20)
[2022-02-10] MEDS ORDERED: VERAPAMIL HCL 2.5 MG/ML 2 ML VIAL ONE (14:55)
[2022-02-10] MEDS ORDERED: Morphine 4mg INJECTION 4 MG/ML INJ IV PRN (15:45)
[2022-02-10] MEDS ORDERED: DEXTROSE 50% SYRINGE 50 ML IV PRN (15:45)
[2022-02-10] MEDS ORDERED: HYDROCODONE/APAP 5MG-325MG TAB PO PRN (15:45)
[2022-02-10] MEDS ORDERED: ONDANSETRON HCL INJ 2MG/ML 2ML 2 MG/ML VIAL IV PRN (15:45)
[2022-02-10] MEDS ORDERED: ACETAMINOPHEN 325 MG TAB PO PRN (15:45)
[2022-02-10] MEDS ORDERED: Morphine 2mg Syringe 2 MG/ML SYR IV PRN (15:45)
[2022-02-10] MEDS: INSULIN LISPRO 100 UNIT/1 ML 3ML VIAL SQ SCH ×2 (16:30→22:30)
[2022-02-10] MEDS: SODIUM CHLORIDE 0.9% 1000ML 1,000 ML IV SCH (18:30)
[2022-02-10] MEDS ORDERED: ZOLPIDEM TARTRATE 5 MG TAB PO PRN (21:00)
[2022-02-10] MEDS ORDERED: AMLODIPINE BESYLATE 5 MG TAB PO SCH (21:00)
[2022-02-11] VITALS: BP 138/68
[2022-02-11] MEDS: SODIUM CHLORIDE 0.9% 1000ML 1,000 ML IV SCH (03:00)
[2022-02-11 04:00] VITALS: BP 156/73
[2022-02-11 06:11] LABS: BASOPHILS # (AUTO) 0.1 (0.0-0.1); BASOPHILS % 0.6 % (0.0-1.0); EOSINOPHILS # (AUTO) 0.2 (0.0-0.4); EOSINOPHILS % 2.4 % (0.0-6.0); HEMOGLOBIN 12.1 g/dL (12.0-16.0); LYMPHOCYTES # (AUTO) 2.3 (1.0-3.2); LYMPHOCYTES % 29.8 % (18.0-39.1); MEAN CORPUSCULAR HEMOGLOBIN 29.3 pg (28-32); MEAN CORPUSCULAR HGB CONC 32.7 g/dL (31-35); MEAN CORPUSCULAR VOLUME 89.6 fL (81-99); MONOCYTES # (AUTO) 0.5 (0.2-0.8); MONOCYTES % 6.6 % (4.4-11.3); NEUTROPHILS # (AUTO) 4.7 (2.1-6.9); NEUTROPHILS % 60.2 % (38.7-80.0); PLATELET COUNT 220 x10e3/uL (140-360); RED BLOOD COUNT 4.13 x10e6/uL (3.6-5.1); RED CELL DISTRIBUTION WIDTH 14.4 % (11.7-14.4)
[2022-02-11 06:46] LABS: ANION GAP 15.8 mmol/L (8-16); CALCIUM 8.4 mg/dL (8.4-10.2); CREATININE, SERUM 0.99 mg/dL (0.57-1.11); POTASSIUM 3.8 mmol/L (3.5-5.1)
[2022-02-11 08:15] VITALS: BP 132/64
[2022-02-11] MEDS ORDERED: FENOFIBRATE 160 MG TAB PO SCH (09:00)
[2022-02-11] MEDS ORDERED: PROPRANOLOL HCL 40 MG TAB PO SCH (09:00)
[2022-02-11] MEDS ORDERED: ASPIRIN 81 MG CHEW TAB PO SCH (09:00)
[2022-02-11] MEDS ORDERED: PANTOPRAZOLE SOD 40 MG TABEC PO SCH (09:00)
[2022-02-11] MEDS: INSULIN LISPRO 100 UNIT/1 ML 3ML VIAL SQ SCH (11:09)
[2022-02-11 12:01] VITALS: BP 133/51
[2022-02-11] MEDS ORDERED: ONDANSETRON HCL 4 MG ORAL DISINTEGRATING TAB PO PRN (13:15)
== END 2022-02-11 13:02 | disposition home or self-care (01) ==
LOC: CATH LAB 07:07 → MED/SURG3 19:25
PROVIDERS: ADMIT Internal Medicine Interventional Cardiology; ATTEND Internal Medicine Interventional Cardiology
DX: E11.51 Type 2 diabetes mellitus with diabetic peripheral angiopathy without gangrene (principal); I70.223 Atherosclerosis of native arteries of extremities with rest pain, bilateral legs; Z20.822 Contact with and (suspected) exposure to COVID-19
CPT/HCPCS: 36415 ×3; 37186; 37225; 37229; 75625; 75898; 76937; 80048; 80053; 82948 ×2; 83880; 85025 ×2; C1724; C1725; C1766; C1769 ×3; C1887; C1894 ×2; C2623 ×2; G0378 ×2; J1644; J2001; J2250; J3010; J7030 ×2; Q9967; S0164; U0002; 36247; 37224; 75716; 99152; 99153